=== PATIENT | female | born 1990 | race Caucasian/White ===

== ENCOUNTER 2017-07-16 12:05 | Emergency (ER) | payer MEDICAID, OTHER ==
[2017-07-16 12:20] VITALS: BMI 27.3
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
[2017-07-16 12:30] VITALS: BP 118/83; PULSE 82; RESP 18; TEMP 98.9; O2SAT 98
== END 2017-07-16 13:07 | disposition home or self-care (01) ==
LOC: H.ER 12:05
DX: S09.90XA Unspecified injury of head, initial encounter (principal); V43.52XA Car driver injured in collision with other type car in traffic accident, initial encounter; Y92.410 Unspecified street and highway as the place of occurrence of the external cause; E11.9 Type 2 diabetes mellitus without complications